=== PATIENT | female | born 1955 | race Caucasian/White ===

== ENCOUNTER → 2022-12-29 | Outpatient (CLI) | payer MEDICARE ==
[~2022-12-29] MED LIST: ATEN100T88 PO; HCT25T PO; PRD20T PO; PRD5T PO; RNT150T PO; TYLENOL #4
== END ==
LOC: CARD 09:47
PROVIDERS: ATTEND Nurse Practitioner Family
DX: I10 Essential (primary) hypertension (principal); R01.1 Cardiac murmur, unspecified; R55 Syncope and collapse
CPT/HCPCS: 93005